=== PATIENT | female | born 1975 | race Caucasian/White ===

== ENCOUNTER 2019-04-22 15:49 | Emergency (ER) | payer OTHER ==
[~2019-04-22] VITALS: Ht 162.6 cm; Wt 62.1 kg
[2019-04-22 15:54] VITALS: BP 123/76; PULSE 86; RESP 18; Ht 162.6 cm; Wt 62.1 kg
[2019-04-22] MEDS ORDERED: ACET1TAB40 PO (16:17)
[2019-04-22] MEDS ORDERED: IBUP-1542 PO (16:17)
[2019-04-22] MEDS ORDERED: CEPH-443 PO (16:17)
--- NOTE | 2019-04-22 16:20 | ERD ---
ER Documentation Chief Complaint Chief Complaint lt side dental pain x 3 days , swelling today HPI 43-year-old female presents with left upper dental pain and swelling for the last 3 days. She has a history of trauma, fevers, shortness of breath, difficulty swallowing. She has a history of poor dentition. She has not seen a dentist recently. ROS All systems reviewed and are negative except as per history of present illness. Medications Home Meds Active Scripts Acetaminophen with Codeine (Acetaminophen-Cod #3 Tablet) 1 Each Tablet, 1 TAB PO Q6H PRN for PAIN, #10 TAB Prov:ROBBIE GAMINO MD 04/22/19 Ibuprofen* (Motrin*) 600 Mg Tab, 600 MG PO Q6, #20 TAB Prov:ROBBIE GAMINO MD 04/22/19 Cephalexin* (Keflex*) 500 Mg Capsule, 500 MG PO QID for 10 Days, CAP Prov:ROBBIE GAMINO MD 04/22/19 Allergies Allergies: Coded Allergies: No Known Allergy (Unverified , 04/22/19) PMhx/Soc Medical and Surgical Hx: pt denies Medical Hx, pt denies Surgical Hx Hx Alcohol Use: No Hx Substance Use: No Hx Tobacco Use: No Smoking Status: Never smoker FmHx Family History: No diabetes, No coronary disease, No other Physical Exam Vitals Vital Signs Date Temp Pulse Resp B/P (MAP) Pulse Ox O2 O2 Flow FiO2 Time Delivery Rate 04/22/19 98.2 86 18 123/76 99 15:54 (92) Physical Exam Const: No acute distress Head: Atraumatic Eyes: Normal Conjunctiva ENT: Normal External Ears, Nose and Mouth. Swelling and tenderness at the base of the left upper anterior molar. Mild tenderness in the maxillary area. No facial induration or erythema. Airway patent. Neck: Full range of motion. No meningismus. Resp: Clear to auscultation bilaterally Cardio: Regular rate and rhythm, no murmurs Abd: Soft, non tender, non distended. Normal bowel sounds Skin: No petechiae or rashes Back: No midline or flank tenderness Ext: No cyanosis, or edema Neur: Awake and alert Psych: Normal Mood and Affect Results 24 hrs Current Medications Medications Dose Sig/Beka Start Time Status Last (Trade) Ordered Route PRN Stop Time Admin Dose Reason Admin Ceftriaxone 1 gm ONCE ONCE 04/22/19 Sodium IM 16:30 (Rocephin) 04/22/19 16:31 Lidocaine 20 ml ONCE ONCE 04/22/19 (Xylocaine SC 16:30 1% (Mdv) 20 04/22/19 16:31 ml) Tramadol 50 mg ONCE ONCE 04/22/19 HCl PO 16:30 (Ultram) 04/22/19 16:31 Procedures/MDM Patient presents with signs and symptoms of an early left upper dental abscess without signs of facial cellulitis, airway obstruction, severe sepsis. She was given Rocephin 1 g IM, oral tramadol 50 mg of mouth and will be treated with Keflex, ibuprofen, Tylenol 3, instructions for warm compresses and dental follow-up. The patient was stable with no new complaints during the ER course. Clinically, there is no current evidence to suggest meningitis, sepsis, acute abdomen, pneumonia, stroke, acute coronary syndrome, pulmonary embolism, aortic dissection or any other emergent condition appearing to require further evaluation or hospitalization. Patient counseled regarding my diagnostic impression and care plan. Prior to discharge all questions answered. Pt agrees with treatment plan and understands strict return precautions. Pt is instructed to follow up with primary care provider within 24-48 hours. Precautionary instructions provided including instructions to return to the ER if not improving or for any worsening or changing symptoms or concerns. Disclaimer: Inadvertent spelling and grammatical errors are likely due to EHR/dictation software use and do not reflect on the overall quality of patient care. Also, please note that the electronic time recorded on this note does not necessarily reflect the actual time of the patient encounter. Departure Diagnosis: Primary Impression: Dental abscess Condition: Stable Patient Instructions: Dental Abscess Referrals: [facility] ([facility] walk [facility] clinic) Additional Instructions: Apply warm compresses and recommend rinsing mouth with mouthwash or warm salt water. See dentist for further evaluation treatment. Recheck for worsening redness, fevers, new worsening symptoms otherwise. ROBBIE GAMINO MD Apr 22, 2019 16:20
[2019-04-22] MEDS ORDERED: traMADol 50 MG TAB PO ONE (16:30)
[2019-04-22] MEDS ORDERED: LIDOCAINE 1% (MDV) 20 ML INJ SC ONE (16:30)
[2019-04-22] MEDS ORDERED: CEFTRIAXONE 1 GM INJ IM ONE (16:30)
== END 2019-04-22 16:45 | disposition home or self-care (01) ==
LOC: FTE 15:49
DX: K04.7 Periapical abscess without sinus (principal)
CPT/HCPCS: 96372; J0696; Z7502; Z7610